=== PATIENT | female | born 1990 ===

== ENCOUNTER 2017-03-29 14:58 | Emergency (ER) | payer OTHER ==
[2017-03-29 15:40] VITALS: BP 156/79; PULSE 92; RESP 18; TEMP 98.9; O2SAT 98
--- NOTE | 2017-03-29 17:16 | ED PDOC ---
- ECG O2 Sat by Pulse Oximetry: 98 Disposition - Disposition
--- NOTE | 2017-03-29 17:28 | ED PDOC ---
HPI: Abdomen History Per: Patient <Sultan Eduardo - Last Filed: 03/29/17 18:42> <Eris Grimm - Last Filed: 03/29/17 19:00> Time Seen by Provider: 03/29/17 15:41 Chief Complaint (Nursing): Abdominal Pain Additional Complaint(s): 27 yo female PMHx gastritis (EGD in 2009) presents to ED w/ complaints of RUQ abdominal pain x 2 days. Pt reports she ate rice and chicken from a cart on 03/25 and started to have nausea and vomiting on 03/26/17. States she had 4-5 episodes of NBNB vomiting every day along with epigastric pain. Pt reports abdominal pain has been localized to RUQ since yesterday and it's constant . Denies any aggravating or alleviating factors. Last vomit this morning. Pt went to urgent care this morning, had negative influenza test but had low grade fever and was advised to come to ED to r/o cholecysitis. Denies diarrhea, fever , chills, dysuria or symptoms. LMP: 2 weeks ago. (Sultan Eduardo) Past Medical History - Medical History PMH: Gastritis - Surgical History Surgical History: No Surg Hx - Family History Other Family History: father: DMII - Social History Current smoker - smoking cessation education provided: No Alcohol: None Drugs: Denies <Sultan Eduardo - Last Filed: 03/29/17 18:42> - Family History Family History: States: No Known Family Hx <Eris Grimm - Last Filed: 03/29/17 19:00> Vital Signs: Last Vital Signs Temp 98.9 F 03/29/17 15:38 Pulse 92 H 03/29/17 15:38 Resp 18 03/29/17 15:38 BP 156/79 H 03/29/17 15:38 Pulse Ox 98 03/29/17 18:46 - Home Medications Home Medications: Ambulatory Orders Medication Instructions Recorded Ondansetron ODT [Zofran ODT] 4 mg PO Q6 #14 odt 03/29/17 Ranitidine HCl [Zantac] 150 mg PO BID PRN #30 tablet 03/29/17 - Allergies Allergies/Adverse Reactions: Allergies Allergy/AdvReac Type Severity Reaction Status Date / Time No Known Allergies Allergy Verified 03/29/17 15:38 Review of Systems Constitutional: Negative for: Fever, Chills Cardiovascular: Negative for: Chest Pain, Palpitations Respiratory: Negative for: Cough, Shortness of Breath Gastrointestinal: Positive for: Nausea, Vomiting, Abdominal Pain. Negative for : Diarrhea Genitourinary Female: Negative for: Dysuria, Hematuria Neurological: Negative for: Dizziness <Geovani Clarktan - Last Filed: 03/29/17 18:42> Physical Exam - Physical Exam Appears: Positive for: No Acute Distress Skin: Negative for: Jaundice Cardiovascular/Chest: Positive for: Regular Rate, Rhythm Respiratory: Positive for: Normal Breath Sounds. Negative for: Crackles, Rales Gastrointestinal/Abdominal: Positive for: Bowel Sounds, Soft, Tenderness (Mild tenderness in RUQ, negative Hawk's sign. No rebound tenderness or guarding.). Negative for: Distended, Guarding Neurologic/Psych: Positive for: Alert, Oriented <Geovani Clarktan - Last Filed: 03/29/17 18:42> - Laboratory Results Result Diagrams: 03/29/17 17:15 03/29/17 17:15 - ECG O2 Sat by Pulse Oximetry: 98 <Sultan Eduardo - Last Filed: 03/29/17 18:42> - Laboratory Results Result Diagrams: 03/29/17 17:15 03/29/17 17:15 <Eris Grimm - Last Filed: 03/29/17 19:00> - Progress ED Course And Treament: Assessment: 27 yo female pmhx gastritis has RUQ abdominal pain x 2 days. Plan: RUQ abominal US CBC CMP LIPASE VBG UA, Urine cx UCG zofran 4mg ivp Pepcid 20 mg IVP Toradol 30 mg IVP Results: RUQ US: NEG for gallstone or cholecystitis Labs: not significant Pt is stable to discharge home. Rx for pepcid and zofran given. Advised to f/u with PMD in 2-3 days and f/u with GI recommended. ED precaution given. (EduardoGillett) Medical Decision Making <Geovani Clarktan - Last Filed: 03/29/17 18:42> <Eris Grimm - Last Filed: 03/29/17 19:00> Medical Decision Makin yo female with RUQ abdominal pain r/o cholecystitis. Agree with resident note. Abd: soft, Tender in epigastric and RUQ with guarding. no rebound. Neg Hawk's. Patient felt better after medications. Abd sono negative. Reeval abdomen: soft, NT, ND, BSx4. She's tolerating PO fluids. Patient will be discharged on Zofran and Zantac and f/u with the [facility] clinic. She was advised to come to the ED if symptoms worsen or any other concern. (Eris Grimm) Disposition <Sultan Eduardo - Last Filed: 03/29/17 18:42> - Disposition Disposition Time: 19:00 <Eris Grimm - Last Filed: 03/29/17 19:00> - Clinical Impression Clinical Impression: Abdominal pain - Disposition [place]errals[place] [facility] [place] Condition: IMPROVED Additional Instructions: Ms Bautista, thank you for letting us take care of you today. Your provider was Dr. Grimm and Dr. Clark. You were treated for Abdominal Pain. The emergency medical care you received today was directed at your acute symptoms. If you were prescribed any medication, please fill it and take as directed. It may take several days for your symptoms to resolve. Return to the Emergency Department if your symptoms worsen, do not improve, or if you have any other problems. Please contact your doctor or call one of the physicians/clinics you have been referred to that are listed on the Patient Visit Information form that is included in your discharge packet. Bring any paperwork you were given at discharge with you along with any medications you are taking to your follow up visit. Our treatment cannot replace ongoing medical care by a primary care provider (PCP) outside of the emergency department. Thank you for allowing the [email or web address] team to be part of your care today. If you had an X-Ray or CT scan: A Radiologist will review the ED reading if any change in treatment is needed we will contact you. If you had a blood, urine, or wound culture: It will take several days for the results, if any change in treatment is needed we will contact you. If you had an STI test: It will take 48 hours for the results. Please call after 1 week if you have not heard back. Prescriptions: Ondansetron ODT [Zofran ODT] 4 mg PO Q6 #14 odt Ranitidine HCl [Zantac] 150 mg PO BID PRN #30 tablet PRN Reason: Pain, Mild (1-3) Instructions: Acute Abdominal Pain (ED) Forms: [employer] ([place]), [facility] ED School/Work Excuse
[2017-03-29 17:37] LABS: BASO % 0.3 % (0.0-2.0); LYMPH # 1.5 K/uL (1.0-4.3); LYMPH % 13.1 % (20.0-40.0); MEAN CELL VOLUME 88.7 fl (81.0-99.0); MEAN CORPUSCULAR HEMOGLOBIN 28.8 pg (27.0-31.0); MEAN CORPUSCULAR HGB CONC 32.5 g/dL (33.0-37.0); MEAN PLATELET VOLUME 8.8 fl (7.2-11.7); MONO # 1.5 K/uL (0.0-0.8); MONO % 13.1 % (0.0-10.0); NEUT # 8.3 K/uL (1.8-7.0); NEUT % 73.5 % (50.0-75.0); RBC 4.18 Mil/uL (3.80-5.20); RED CELL DISTRIBUTION WIDTH 13.4 % (11.5-14.5); WHITE BLOOD COUNT 11.3 K/uL (4.8-10.8)
[2017-03-29 17:45] LABS: SQUAMOUS EPITHIAL 4 /hpf (0-5); URINE BACTERIA RARE (<OCC); URINE BILIRUBIN NEGATIVE (NEGATIVE); URINE BLOOD NEGATIVE (NEGATIVE); URINE CLARITY SLIGHTY-CLOUDY (Clear); URINE COLOR YELLOW (YELLOW); URINE GLUCOSE (UA) NEG (Normal); URINE LEUKOCYTE ESTERASE NEG Leu/uL (Negative); URINE NITRATE NEGATIVE (NEGATIVE); URINE PROTEIN NEGATIVE (NEGATIVE); URINE UROBILINOGEN 0.2-1.0 mg/dL (0.2-1.0)
[2017-03-29 17:45] LABS: ALB/GLOB RATIO 1.2 (1.0-2.1); ALBUMIN 4.5 g/dL (3.5-5.0); ALT/SGPT 28 U/L (9-52); AST/SGOT 35 U/L (14-36); BLOOD UREA NITROGEN 11 mg/dl (7-17); CALCIUM 9.3 mg/dL (8.4-10.2); GFR AFRICAN-AMERICAN > 60; GFR NON-AFRICAN AMERICAN > 60; LIPASE 23 U/L (23-300)
[2017-03-29 17:53] LABS: VENOUS BLOOD GAS BASE EXCESS 0.8 mmol/L (0.0-2.0); VENOUS BLOOD GAS PCO2 46 mmHg (40-60); VENOUS BLOOD GAS PO2 14 mm/Hg (30-55); VENOUS BLOOD PH 7.37 (7.32-7.43)
--- NOTE | 2017-03-29 18:17 | US ---
HISTORY: ruq abd pain r/o cholecytitis COMPARISON: None available TECHNIQUE: Sonographic evaluation of the right upper quadrant of the abdomen. FINDINGS: LIVER: Measures 17.8 cm in length and appears unremarkable. No focal hepatic mass identified. The main portal vein appears patent with normal directional flow. No intrahepatic bile duct dilatation. GALLBLADDER: No gallstones. No gallbladder wall thickening or pericholecystic edema. Negative sonographic Hawk's sign as assessed by the multi line claims adjuster. COMMON BILE DUCT: Measures 3 mm. PANCREAS: Not well-visualized. RIGHT KIDNEY: Measures 11.6 x 4.0 x 4.4 cm. No obstructing calculus or hydronephrosis identified. AORTA: Limited visualization appears grossly unremarkable. IVC: Limited visualization appears grossly unremarkable. OTHER FINDINGS: None . IMPRESSION: No acute findings identified.
== END 2017-03-29 19:55 | disposition home or self-care (01) ==
LOC: H.ER 14:58
DX: R10.13 Epigastric pain (principal)
CPT/HCPCS: 76705; 80053; 81003; 81025; 82803; 83690; 85025; 87040; 87086; 87181; 96374; 96375; 99282; J1885; J2405